=== PATIENT | female | born 1970 | race African-American/Black ===

== ENCOUNTER 2019-04-12 10:18 | Emergency (ER) | payer OTHER ==
[~2019-04-12] VITALS: Ht 175.3 cm; Wt 127.0 kg
[~2019-04-12 10:18] MED LIST: ACCUNEB SO1.25 MG/1 INH; ACETAMINOPHEN-1 EAC1 PO; ALBUTEROL2.5 MG/31 INH; DULERA 200 MCG/13 GM; LEVAQUIN 500 M500 M2 PO; MEDROLDOSEPACK PO; NASONEX17 GM NASAL; ONDANSETRON HCL4 M2 PO; OSELB75 PO; PROAIR HFA8.5 GM INH; PROMETHAZINE D480 ML PO; TESSALON PERLE100 MG PO; ZYRTEC10 MG PO
[2019-04-12 11:03] LABS: URINE BILIRUBIN NEGATIVE (Negative); URINE BLOOD 1+ (Negative); URINE CLARITY SL CLOUDY; URINE COLOR YELLOW; URINE GLUCOSE-RANDOM NEGATIVE (Negative); URINE KETONES NEGATIVE (Negative); URINE LEUKOCYTES-REFLEX 1+ (Negative); URINE NITRITE-REFLEX NEGATIVE (Negative); URINE PROTEIN NEGATIVE (Negative); URINE UROBILINOGEN 0.2 E.U./dl (0.2-1.0)
[2019-04-12 11:09] LABS: HEMATOCRIT 40.6 % (37.0-47.0); HEMOGLOBIN 13.5 gm/dL (12.0-15.0); MCH 29.8 pg (26.0-34.0); MCHC 33.3 g/dL (28.0-37.0); MCV 89.3 fL (80.0-100.0); MPV 9.6 fl. (7.2-11.1); NUCLEATED RBCS 0 /100WBC; PLATELET COUNT* 253 thou/uL (150-400); RBC 4.54 mil/uL (4.20-5.00); RDW-CV 14.2 % (10.5-14.5); WBC 10.4 thou/uL (4.0-11.0)
[2019-04-12 11:15] LABS: CALCIUM 9.1 mg/dL (8.5-10.1); CREATININE 1.1 mg/dL (0.6-1.3); POTASSIUM 4.3 mmol/L (3.5-5.1)
[2019-04-12 11:20] LABS: ALBUMIN 3.8 g/dL (3.4-5.0); TOTAL BILIRUBIN 0.3 mg/dL (<0.1-1.0); TOTAL PROTEIN 8.4 g/dL (6.4-8.2)
[2019-04-12 11:21] LABS: MUCUS 0-3 Light strn/LPF (None Seen); SQUAMOUS >10 Many /LPF (0-3)
[2019-04-12 11:22] LABS: CASTS None Seen /LPF (None Seen); CRYSTALS None Seen /LPF (None Seen)
[2019-04-12 11:23] LABS: URINE WBC-REFLEX 0-5 Rare /HPF (0-5)
[2019-04-12 11:24] LABS: URINE RBC 0-2 Rare /HPF (0-2)
[2019-04-12 11:59] LABS: ABSOLUTE EOSINOPHILS 0.8 thou/uL (0.0-0.7); ABSOLUTE LYMPHOCYTES 2.5 thou/uL (0.8-5.3); ABSOLUTE MONOCYTES 0.4 thou/uL (0.0-1.2); ABSOLUTE NEUTROPHILS 6.7 thou/uL (1.6-8.1); PLATELET ESTIMATE ADEQUATE
[2019-04-12] MEDS ORDERED: FLOMAX0.4 MG PO (12:22)
[2019-04-12] MEDS ORDERED: HYDROCODON-ACE1 EAC8 PO (12:22)
[2019-04-12 12:29] VITALS: BP 128/79
[2019-04-12] MEDS ORDERED: METRONIDAZOLE500 M4 PO (13:43)
--- NOTE | 2019-04-13 10:35 | EKG ---
[place] [address] ELECTROCARDIOGRAM REPORT Name: RICHARD MARTINEZ V Room: [facility]#: [id number] Admission: 04/12/19 Attend Phys: Discharge: 04/12/19 Date of : 74 Report #: [id number] THIS REPORT FOR: //name// [facility] ED Test Date: 2019-04-12 Test Time: 11:05:37 Pat Name: RICHARD MARTINEZ Department: Room: Gender: F Tube Filler: ARIEL : 1970 Requested By: Frances Turner Order Number: [id number] MD: Donaldo Roew Measurements Intervals [place] Rate: 55 P: 57 AK: 178 QRS: 47 QRSD: 83 T: 25 QT: 412 QTc: 394 Interpretive Statements Sinus bradycardia Probable left atrial enlargement No previous ECG available for comparison Electronically Signed On 04-13-2019 10:35:25 [employer] by Donaldo Rowe [email or web address] <ELECTRONICALLY SIGNED> By: Donaldo Rowe MD, [facility] 04/13/19 1035 1105 1105 Donaldo Rowe MD, FACC /EPI
== END 2019-04-12 12:30 | disposition home or self-care (01) ==
LOC: M.ERS 10:18
PROVIDERS: Nurse Practitioner Family
DX: N20.0 Calculus of kidney (principal); A59.9 Trichomoniasis, unspecified; J45.909 Unspecified asthma, uncomplicated; F12.10 Cannabis abuse, uncomplicated; R06.02 Shortness of breath; K59.00 Constipation, unspecified